=== PATIENT | female | born 1985 | race Caucasian/White ===

== ENCOUNTER 2016-08-24 10:45 | Inpatient (IN) | payer OTHER ==
[~2016-08-24] VITALS: Ht 170.2 cm; Wt 104.8 kg
[2016-08-24] VITALS (13 sets, daily range): BP systolic 108–122; BP diastolic 51–78
--- NOTE | 2016-08-24 10:35 | NUR ---
PATIENT BROUGHT UP FROM ER REGISTRATION VIA WHEELCHAIR AFTER BEING SENT FROM THE DOCTOR'S OFFICE FOR COMPLAINTS OF CONTRACTIONS AND SVE OF 2CM/60%. HEIGHT AND WEIGHT OBTAINED UPON ARRIVAL TO UNIT AND THEN PATIENT AMBULATED TO ROOM 256. UA SAMPLE COLLECTED, DOA CONSENT EXPLAINED TO PATIENT AND SIGNED BY PATIENT. PART A COMPLETED. STATES HER CONTRACTIONS STARTED 08/23/16 AT ABOUT 1800. PATIENT DENIES ANY VAGINAL BLEEDING OR LEAKAGE OF FLUID.
[~2016-08-24 10:45] MED LIST: CLARITIN10 M2 PO; IRON325 M1 PO; PRENATABS FA PO
[2016-08-24 10:48] LABS: URINE BILIRUBIN - DIPSTICK NEGATIVE (NEGATIVE); URINE BLOOD DIPSTICK MODERATE (NEGATIVE); URINE COLOR YELLOW; URINE GLUCOSE - DIPSTICK NEGATIVE (NEGATIVE); URINE KETONE NEGATIVE (NEGATIVE); URINE NITRITE - DIPSTICK NEGATIVE (Negative); URINE PROTEIN - DIPSTICK TRACE mg/dL (NEG-TRACE); URINE SPECIFIC GRAVITY >=1.030
[2016-08-24 10:49] LABS: URINE CLARITY HAZY; URINE LEUK ESTERASE SMALL (NEGATIVE)
[2016-08-24 10:57] LABS: BARBITURATES NEGATIVE (NEGATIVE); COCAINE NEGATIVE (NEGATIVE); METHADONE NEGATIVE (NEGATIVE); OXCYCODONE NEGATIVE (NEGATIVE); TETRAHYDROCANNABIONOL NEGATIVE (NEGATIVE); TRICYLIC ANTIDEPRESSANTS NEGATIVE (NEGATIVE)
[2016-08-24 11:03] LABS: URINE SQUAMOUS EPITHELIAL CELL FEW EPI/hpf (0-FEW)
--- NOTE | 2016-08-24 11:27 | NUR ---
FHR NOT TRACING. EFM ADJUSTED AND AUDIBLE DECEL HEARD. FHR IN THE LOW 70'S. PATIENT PLACED ON HER LEFT SIDE, 02 APPLIED AT 10L/MIN VIA NON-REBREATHER AND PULSE OX PROBE APPLIED ON PATIENT. ISAIAS EDWARDS BEDSIDE AT THIS TIME. FHR 100 AND MATERNAL HEART RATE 75. CLINICAL SUPPORT TEAM CALLED TO UNIT. 1115: DR. ESPINOZA CALLED BY ISAIAS EDWARDS AND OR TEAM CALLED WELL. IV SITE INITIATED BY ISAIAS BLAIR. IV FLUID BOLUS OF LACTATED RINGERS INITIATED. 1123: DR. ESPINOZA BEDSIDE AT THIS TIME. STAT CALLED BY FOR BRADYCARDIA. BOYLE CATHETER INSERTED AND PATIENT SHAVED. 1127: PATIENT TAKEN TO OR VIA BED BY MD AND OR NURSE.
[2016-08-24 11:34] LABS: HEMOGLOBIN 11.8 g/dl (12.0-16.0); IMMATURE GRANULOCYTES 0.5 % (0.0-1.0); MEAN CELL VOLUME 87.2 fL CALC (80.0-100.0); MEAN CORPUSCULAR HGB 28.6 pG CALC (26.0-32.0); MEAN CORPUSCULAR HGB CONC 32.8 g/L CALC (32.0-36.0); NEUT# 7.83 thou/uL (2.00-7.15); RED BLOOD COUNT 4.13 mill/uL (4.20-5.60); RED CELL DISTRI WIDTH 14.6 % (11.5-15.5)
[2016-08-24 11:46] LABS: ALBUMIN 3.4 g/dL (3.2-5.0); ALKALINE PHOSPHATASE 152 u/l (38-126); BILIRUBIN, TOTAL 0.5 mg/dL (0.0-1.4); BUN 9 mg/dL (7-17); BUN/CREATININE RATIO 15 (12-20 (CALC)); CALCIUM 9.5 mg/dL (8.4-10.2); CARBON DIOXIDE 21 mmol/l (22-30); CHLORIDE 106 mmol/l (95-108); CREATININE 0.6 mg/dL (0.5-1.0); GFR > 60 ML/MIN (>=60 (CALC)); GFR FOR AFR.AMER. > 60 ML/MIN (>=60 (CALC)); GLUCOSE 77 mg/dL (65-105); SGOT/AST 18 u/l (14-36); SGPT/ALT 17 u/l (9-52); SODIUM 138 mmol/l (137-146); TOTAL PROTEIN 6.8 g/dL (6.3-8.2)
[2016-08-24 11:48] LABS: ANION GAP 15 (6-22 (CALC)); POTASSIUM 4.1 mmol/l (3.5-5.1)
--- NOTE | 2016-08-24 13:20 | NUR ---
RECEIVED REPORT FROM GARY PEREZ RN. PT TRANSFERRED TO BED IN . CONDITION IS STABLE. IV SITE WNL, MORPHINE RUNNING AT 2MG/HR ANGLE ROLL OPERATOR. DRESSSING IS C/D/I. PITOCIN UP, 2ND BAG AT 125 ML/HR. EBL 500ML, IV FLUIDS IN 1200ML, URINE OUT 600ML DARK YELLOW. 4 MG MORPHINE BOLUS AT 1255. PERICARE DONE.
--- NOTE | 2016-08-24 13:30 | NUR ---
ASSESSMENT CHARTED. LOCHEA IS LIGHT, FUNDUS FIRM AT 1FBB. IV SITE WNL, MORPHINE RUNNING AT 2MG/HR. PT STATES NO PAIN. FAMILY AT BEDSIDE, ICE CHIPS GIVEN.
--- NOTE | 2016-08-24 14:15 | NUR ---
REVIEWED ALL ADMIT PAPERWORK WITH PT. CONDITION IS STABLE. LOCHEA IS MODERATE, PERICARE DONE, FUDUS MASSAGED AND FIRM. FAMILY AT BEDSIDE AND SUPPORTIVE. PT REPORTS NO PAIN. MORPHINE RUNNING AT 2MG/HR. DRESSING IS C/D/I. IV SITE WNL.
--- NOTE | 2016-08-24 14:30 | NUR ---
OFFERED ICE WATER
--- NOTE | 2016-08-24 15:15 | NUR ---
PT UP IN BED, CONDITION IS STABLE. NO PAIN. LOCHEA IS LIGHT TO MODERATE, FUNDUS FIRM AT 2 FBB. NO NEEDS AT THIS TIME.
--- NOTE | 2016-08-24 15:23 | NUR ---
OFFERED APPLE JUICE
--- NOTE | 2016-08-24 15:30 | NUR ---
PT RESTING QUIETLY IN BED WITH EYES CLOSED. NO S/S OF DISTRESS NOTED. EASILY AWOKE. NO NEEDS AT THIS TIME.
--- NOTE | 2016-08-24 16:17 | NUR ---
PT IS UP IN BED TAKING CLEAR LIQUID TRAY. CONDITION IS STABLE. NO NEEDS AT HTIS TIME.
[2016-08-24 17:50] LABS: HEMATOCRIT 30.8 % (37.0-47.0); HEMOGLOBIN 10.3 g/dl (12.0-16.0); IMMATURE GRANULOCYTES 0.4 % (0.0-1.0); MEAN CELL VOLUME 86.5 fL CALC (80.0-100.0); MEAN CORPUSCULAR HGB 28.9 pG CALC (26.0-32.0); MEAN CORPUSCULAR HGB CONC 33.4 g/L CALC (32.0-36.0); NEUT# 13.61 thou/uL (2.00-7.15); RED BLOOD COUNT 3.56 mill/uL (4.20-5.60); RED CELL DISTRI WIDTH 14.6 % (11.5-15.5)
--- NOTE | 2016-08-24 17:54 | NUR ---
PT UP IN BED EATING FULL LIQUID TRAY, PT IS SLEEPY, CONDITION IS STABLE. PT STATES NO PAIN, QUESTIONS OR CONCERS AT THIS TIME. LIGHT/MOD LOCHEA. FUNDUS FIRM AT 2 FBB. DRESSING IS C/D/I. IV SITE WNL AND RUNNING WELL. PHOTOGRAPHS CURATOR MORPHINE 2 MG/HR. MOTHER IN LAW AT BEDSIDE AND SUPPORTIVE.
--- NOTE | 2016-08-24 18:26 | NUR ---
PT STILL UP WORKING ON FULL LIQUIDS. VERY TIRED. OFFERED TO REMOVE BOYLE AND GO TO BR. SHE IS GOING TO CONTINUE WITH DINNER AND GET UP IN ABOUT AN HOUR. OFFERED PERICARE, SHE WILL JUST WAIT UNTIL SHE GETS UP. MOTHER IN LAW REMAINS AT BEDSIDE AND SUPPORTIVE. PT STATES NO NEEDS. NO PAIN. MORPHINE RUNNING AT 2MG/HR. REPORT IS READY FOR NEXT SHIFT.
--- NOTE | 2016-08-24 19:00 | NUR ---
REPORT RECEIVED FROM Wen BROWN RN. PT SITTING UP IN BED HOLDING INFANT. ALERT AND TALKING. DESCRIBES PAIN MILD CRAMPING AND RATES ONLY 1 OR 2/10. DENIES ANY NEEDS AT THIS TIME. STILL WORKING ON DINNER TRAY. GOING TO WORK ON NURSING . BED IN LOW POSITION, CALL LIGHT IN REACH, MIL AT BEDSIDE.
--- NOTE | 2016-08-24 21:10 | NUR ---
IN AT 1950 TO DO PATIENT ASSESSMENT & VS. STABLE CHARTED. DENIED PAIN. ASSISTED PATIENT UP TO BATHROOM, TAMAR CANDELARIA, ARINA CARE DONE BY NURSE AND DEMONSTRATED TO PATIENT. PATIENT ASSISTED BACK TO BED. PT TEACHING DONE AND ENCOURAGED COUGH/DEEP BREATH AND INCENTIVE SPIROMETRY. FLUIDS RUNNING, MOTRIN GIVEN TO PATIENT WHO AFTER GETTING UP C/O PAIN AT 6/10. FLUIDS WERE ENCOURAGED AND GIVEN. ENCOURAGED TO CALL FOR ASSISTANCE AND ADVISED THE NEED TO URINATE IN ABOUT 6 HOURS. BED IN LOW POSITION, CALL LIGHT IN REACH, MIL AT BEDSIDE. WILL CONTINUE TO MONITOR.
--- NOTE | 2016-08-25 02:16 | NUR ---
UP TO BATHROOM WITH ASSIST, URNINATED 600ML YELLOW URINE WITH SMALL CLOTS. ARINA CARE REINSTRUCTED AND DONE BY PATIENT. ASSISTED BACK TO BED. PT DENIES PAIN AND STATES "THIS WAS MUCH EASIER THAN THE LAST TIME GETTING UP". PT GIVEN ICE CHIPS PER REQUEST. MIL AT BEDSIDE. WILL CONTINUE TO MONITOR.
[2016-08-25 03:50] VITALS: BP 102/65
--- NOTE | 2016-08-25 05:10 | NUR ---
PT UP TO BATHROOM WITH ASSISTANCE. WALKING SLOW BUT ABLE TO MOVE EASIER. URINATED AND PERICARE DONE BY PATIENT. ASSISTED BACK TO BED. GIVEN GATORADE AND MOTRIN FOR C/O PAIN.
--- NOTE | 2016-08-25 06:20 | NUR ---
PT IN BED, EYES CLOSED. RESP EVEN AND UNLABORED. NO MOVEMENT ON ENTRANCE. REPORT PREPARED FOR NEXT SHIFT.
--- NOTE | 2016-08-25 07:00 | NUR ---
REPORT FROM Darlin MATTSON RN. BEDSIDE CHECK OF DOCUMENT MANAGEMENT SPECIALIST. MOTHER SLEEPING SOUNDLY. RESP NORMAL.
[2016-08-25 09:00] VITALS: BP 104/70
--- NOTE | 2016-08-25 09:00 | NUR ---
PT REQUESTING MORPHINE D/C AND IV D/C. PAIN MANAGEMENT DISCUSSED AND PT FEELS THAT SHE WILL DO FINE WITH MOTRIN, LORTAB ALSO DISCUSSED. SHE WAS JUST OOB WITHOUT DIFFICULTY TO BATHROOM AND DENIES NEED FOR PAIN MED AT THIS TIME. IV AND BILLET STRAIGHTENER D/C'D. MORPHINE WASTED WITH Broderick MENDOZA AND Gretchen HOPSON, PHARMACY.
--- NOTE | 2016-08-25 13:00 | NUR ---
FEEDING CUES AND BENEFITS DISCUSSED AT LENGTH. PT'S MOTHER IN LAW REQUESTS BOTTLE FEEDING. PT DECLINES TO BREAST FEED AT THIS TIME ALTHOUGH SHE NURSED HER OTHER 2 CHILDREN. ENCOURAGEMENT GIVE TO BREASTFEED AND ASSISTANCE PRN OFFERED.
--- NOTE | 2016-08-25 14:58 | NUR ---
MEDICATED WITH LORTAB FOR PAIN OF 6. PAIN MANAGEMENT AGAIN DISCUSSED AND ENCOURAGED.
--- NOTE | 2016-08-25 15:00 | NUR ---
PP MOTHER AND INFANT CARE INSTRUCTIONS REVIEWED AND PT ENCOURAGED TO READ AND SIGN. PT HAS COMPLETED HER EDUCATIONAL VIDEOS. SHE EXPRESSES NO CONCERNS OR QUESTIONS AT THIS TIME.
--- NOTE | 2016-08-25 16:48 | NUR ---
PT SHOWERING AFTER MUCH ENCOURAGEMENT. NO FAMILY OR VISITORS PRESENT. MOTHER REQUESTS TO NURSERY
--- NOTE | 2016-08-25 17:05 | NUR ---
DRESSING REMOVED. MINIMAL OLD BLEEDING. LOCHIA SCANT TO LIGHT. PT ENCOURAGED TO AMBULATE
--- NOTE | 2016-08-25 17:24 | NUR ---
MOTHER ALLOWS OTHERS TO CARE FOR BABY WHEN THEY ARE PRESENT. DISCUSSED HER CARE OF BABY AND SUGGESTIONS FOR EASIER MOVEMENT.
--- NOTE | 2016-08-25 17:25 | NUR ---
INCISION OPEN TO AIR WITH STERI STRIPS, NO REDNESS OR DRAINAGE. CARE DISCUSSED WITH PT
--- NOTE | 2016-08-25 18:04 | NUR ---
EATING SUPPER ALONE FAMILY DID NOT RETURN AND SHE IS UNSURE IF THEY WILL. ENCOURAGED TO HAVE CAR SEAT BROUGHT TO UNIT. ENCOURAGED TO READ THRU DISCHARGE INSTRUCTIONS AND ASK QUESTIONS.
--- NOTE | 2016-08-25 18:30 | NUR ---
REPORT PREPARED FOR ONCOMING SHIFT.
[2016-08-25 20:25] VITALS: BP 120/80
--- NOTE | 2016-08-26 01:15 | NUR ---
IN TO CHECK ON PATIENT. EYES CLOSED, BREATHING EVEN AND UNLABORED. NO MOVEMENT UPON ENTRANCE. CALL LIGHT IN REACH.
[2016-08-26 05:24] VITALS: BP 121/78
--- NOTE | 2016-08-26 05:24 | NUR ---
IN ROOM TO CHECK ON PATIENT AND OBTAIN VS. SITTING UP IN BED, AWAKE WITH TV ON. VS OBTAINED. DENIES PAIN AT THIS TIME BUT STATES SHE HASN'T MOVED AROUND MUCH. ADVISED PATIENT THAT DUE TO PREVIOUS PAIN, DECREASED BOWEL SOUNDS AND STATED NOT PASSING GAS, SHE NEEDED TO GET UP SOON AND WALK AROUND. PT VOICED UNDERSTANDING. APPLE JUICES GIVEN, CALL LIGHT IN REACH.
--- NOTE | 2016-08-26 06:22 | NUR ---
REPORT PREPARED FOR ONCOMING SHIFT. SITTING UP IN BED, HOLDING .
--- NOTE | 2016-08-26 07:00 | NUR ---
SITS ON SIDE OF BED, SMILING, TALKING WATCHING TV, NO REQUESTS AT THIS TIME.
[2016-08-26] MEDS ORDERED: IBUPROFEN600 MG PO (08:18)
[2016-08-26] MEDS ORDERED: LORTAB 7.57.5 MG PO (08:19)
--- NOTE | 2016-08-26 08:30 | NUR ---
PT HAS BEEN AMBULATING IN ROOM STATES SHE HAS BEEN PASSING GAS.
--- NOTE | 2016-08-26 09:00 | NUR ---
DISCHARGE PLAN REVIEWED, PT ACKNOWLEDGES OLIMPIAIG.
--- NOTE | 2016-08-26 10:30 | NUR ---
PT PREPARING FOR DISCHARGE.
--- NOTE | 2016-08-26 11:05 | NUR ---
Discharge instructions given and reviewed. Pt. verbalizes understanding. Discharged in good condition via Wheelchair to Home with , parents have carseat accompanied by significant other escorted by auxiliary person.
== END 2016-08-26 11:05 | disposition home or self-care (01) | DRG 766 ==
LOC: OB 10:45 → OBOP 10:45 → OB 11:30
PROVIDERS: ADMIT Obstetrics & Gynecology; ATTEND Obstetrics & Gynecology
PROC: 10D00Z1 Extraction of Products of Conception, Low, Open Approach (ICD-10-PCS; principal; 2016-08-24)
DX: O48.0 Post-term pregnancy (principal); E66.9 Obesity, unspecified; O76 Abnormality in fetal heart rate and rhythm complicating labor and delivery; O69.0XX0 Labor and delivery complicated by prolapse of cord, not applicable or unspecified; O77.0 Labor and delivery complicated by meconium in amniotic fluid; O99.214 Obesity complicating childbirth; Z68.36 Body mass index [BMI] 36.0-36.9, adult; Z3A.41 41 weeks gestation of pregnancy; Z37.0 Single live birth
CPT/HCPCS: J2710